=== PATIENT | male | born 1990 | race Caucasian/White ===

== ENCOUNTER 2016-10-03 04:24 | Inpatient (IN) | payer SELFPAY ==
[~2016-10-03] VITALS: Ht 180.3 cm; Wt 63.0 kg
[2016-10-03 05:07] LABS: MEAN CORPUSCULAR HEMOGLOBIN 27.4 pg (27.0-33.0); MEAN CORPUSCULAR HGB CONC 33.5 g/dl (32.0-36.5); MEAN CORPUSCULAR VOLUME 81.7 fl (80.0-96.0); RED CELL DISTRIBUTION WIDTH 12.6 % (11.5-14.5); WHITE BLOOD COUNT 7.6 K/mm3 (4.0-10.0)
[2016-10-03 05:48] LABS: METHADONE URINE NEGATIVE (NEGATIVE)
[2016-10-03 05:59] LABS: ALBUMIN 4.4 GM/DL (3.2-5.2); ALBUMIN/GLOBULIN RATIO 1.57 (1.00-1.93); ALKALINE PHOSPHATASE 41 U/L (45-117); ALT/SGPT 27 U/L (12-78); ANION GAP 8 MEQ/L (8-16); AST/SGOT 19 U/L (15-37); BILIRUBIN,DIRECT 0.1 MG/DL (0.0-0.2); BILIRUBIN,TOTAL 0.5 MG/DL (0.2-1.0); BLOOD UREA NITROGEN 14 MG/DL (7-18); CALCIUM LEVEL 8.6 MG/DL (8.5-10.1); CARBON DIOXIDE LEVEL 24 MEQ/L (21-32); CHLORIDE LEVEL 109 MEQ/L (98-107); CREATININE FOR GFR 0.83 MG/DL (0.70-1.30); GLOMERULAR FILTRATION RATE > 60.0 (>60); GLUCOSE, FASTING 90 MG/DL (70-105); POTASSIUM SERUM 4.2 MEQ/L (3.5-5.1); SODIUM LEVEL 141 MEQ/L (136-145); TOTAL PROTEIN 7.2 GM/DL (6.4-8.2)
[2016-10-03] MEDS ORDERED: ACETAMINOPHEN TAB 650MG DOSE (2X325MG) PO PRN (07:30)
[2016-10-03] MEDS ORDERED: MOM 30ML SUSPENSION UDC PO PRN (07:30)
[2016-10-03] MEDS ORDERED: MAALOX 30 ML SUSP *UDC PO PRN (07:30)
[2016-10-03] MEDS ORDERED: traZODone 50 MG TAB PO PRN (07:30)
[2016-10-03] MEDS ORDERED: NICOTINE 21MG/24HR 1 EA TRANSDERMAL TD SCH (09:00)
[2016-10-03 09:11] VITALS: BP 117/73
[2016-10-03] MEDS: NICOTINE 21MG/24HR 1 EA TRANSDERMAL TD SCH (16:39)
[2016-10-03 18:00] VITALS: BP 135/76
--- NOTE | 2016-10-04 01:28 | HPE ---
DATE OF ADMISSION: 10/03/2016 HISTORY OF PRESENT ILLNESS: Please refer to psychiatric history and evaluation for further details on this admission. This examination and history is intended for medical issues, which may need treatment, followup or consult on this 26-year-old male. ALLERGIES: No known allergies. PRIMARY CARE PROVIDER: He does not currently have one. SOCIAL HISTORY: He is , but . Ethyl alcohol (EtOH) weekends. Smokes none. Recreational drug use: Marijuana and cocaine. PAST MEDICAL HISTORY: Negative. PAST SURGICAL HISTORY: Negative. HOME MEDICATIONS: None. FAMILY HISTORY: Noncontributory. LABORATORY STUDIES: CBC normal. Sodium 141, potassium 4.2, chloride 109, CO2 24, BUN and creatinine 14 and 0.83. Urine positive for cocaine, positive for cannabinoids. REVIEW OF SYSTEMS: 10-system review was done, was unremarkable. Patient had no complaints. PHYSICAL EXAMINATION: 26-year-old cooperative male in no acute distress. Vital signs are stable. Height 71 inches, weight 61.8 kg, body mass index (BMI) 19. Blood pressure 117/73, pulse 67, respirations 18, temperature 96.6. Patient is alert and oriented times three. Pupils equal and react to light. Extraocular muscles intact. Cornea and sclerae clear. Conjunctivae were normal. No facial asymmetry. Pharynx, tongue and gums pink and moist. Tongue is midline. Neck is supple without lymphadenopathy. No thyromegaly, no goiter. Carotids 2+ without bruit. Chest clear to auscultation without wheeze or retraction. Heart is regular. Abdomen is benign. Bowel sounds positive. Genitourinary/rectal: Not done. Extremities: Show equal strength, full range of motion. No cyanosis, clubbing or edema. Peripheral pulses equal and palpable bilaterally. Skin is warm and dry. IMPRESSION/PLAN: Psychiatric plan per psychiatry. No acute medical issues.
--- NOTE | 2016-10-04 02:34 | MHHPE ---
DATE OF ADMISSION: 10/03/2016 HISTORY OF PRESENT ILLNESS: This is a 26-year-old white man who was admitted to the hospital after the patient's girlfriend called the hospital and stated that the patient had threatened to shoot himself with a gun. The girlfriend stated that they had been out in a bar and they had an argument and then the patient went home and attempted to shoot himself with a gun and that she needed to wrestle the gun away from him. The patient is very angry at the girlfriend. He says that it is not true. He says that "I might have mentioned it" when I asked him if he had threatened to use a gun to kill himself. He says, however, that he never had the gun and she never had to wrestle it out of his hand. He says that he and his girlfriend of the past 11 years have been having a lot of problems. The girlfriend showed up at the bar and then an argument ensued. He states he and the girlfriend have been having problems on and off over the past few years. He states that 2 weeks ago he actually left her and he went to stay at his mother's [facility]. He admits that he was very sad at first and he felt very lonely. He says in particular he missed his son who is 3 years old. He says that he is used to putting his son to sleep at night and he misses him a lot. He admits that he still does care for his girlfriend, but he says that at this point he is not sure that their relationship is going to work out unless she changes he says. Currently, the patient is denying that he is depressed. I am not eliciting any mood symptoms. There is no history of any hypomanic or manic-like symptoms or posttraumatic stress disorder (PTSD) or obsessive-compulsive disorder (OCD) or panic symptoms in this patient. PAST PSYCHIATRIC HISTORY: The patient has never any prior outpatient or inpatient psychiatric treatment. He has never made any suicidal attempts. He has never been prescribed any psychotropic medications. FAMILY HISTORY: There is no psychiatric history in the family and no suicides in the family. MEDICAL HISTORY: Patient denies having any medical problems. ABUSE HISTORY: Patient denies any history of any physical or sexual abuse. SUBSTANCE ABUSE HISTORY: Patient says that he uses cannabis daily. He drinks about 3-4 beers a week. REVIEW OF SYSTEMS: VITAL SIGNS: Blood pressure 107/62, pulse 72, respirations 18. APPEARANCE: The patient is dressed in hospital garments and appears the stated age. NEUROMUSCULAR SYSTEM: The patient's gait is normal. There are no involuntary movements noted. All other systems were reviewed and found to be negative. MENTAL STATUS EXAMINATION: This patient is alert and oriented times three. Eye contact is good. Psychomotor activity is increased since he was agitated at first but then he was able to calm down. He is verbally spontaneous. There is no formal thought disorder noted. His mood is angry and affect full range and appropriate. He is not psychotic, suicidal, or homicidal. Concentration is fair. Memory intact. Insight and judgment is poor. DIAGNOSIS: AXIS I: Adjustment disorder with depressed mood, rule out depressive disorder. TREATMENT PLAN: The patient is pretty agitated at first and angry and basically stating that he did not feel that he needed to be in the hospital. As I said, he was minimizing everything prior to admission. According to him he never had the gun in his hand and he said "I just mentioned it." We will need to further observe and evaluate him for continued resolution of suicidal ideations and for possible collaborative information from significant others, particularly his mother. Once stable, we will discharge him with appropriate followup. RACHEL
[2016-10-04 06:49] VITALS: BP 130/64
[2016-10-04] MEDS: NICOTINE 21MG/24HR 1 EA TRANSDERMAL TD SCH (09:33)
[2016-10-04 18:00] VITALS: BP 138/72
--- NOTE | 2016-10-05 05:25 | IPN ---
DATE: 10/04/2016 Evaluated 26-year-old male with a history of adjustment disorder with depressed mood, rule out depressive disorder. SUBJECTIVE: The patient denies feeling suicidal, denies severe depression or even moderate depression. He says that he was admitted because he said that he will kill himself over an argument he had with his ex-, but he was not being literal about it. 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 He reports that he has much to live especially for his [id number] son. He says that he has been having problems with his ex- for a long time because she has never accepted the fact that he works seven days a week, and she is very unhappy about that, but he says he needs to work in order to provide. Because he does work seven days a week, they are able to make ends meet every month. He says the situation has become unbearable and they have been having several problems since about 4-5 years ago, but he has been in a relationship with her for 11 years. They decided to separate and they had this argument last Tuesday, and he says he wanted to kill himself but, again, he says this was not serious. He denies auditory or visual hallucinations, denies current suicidal or homicidal ideations, denies self harm thoughts and denies thoughts of harming other people. Denies thought delusions. OBJECTIVE: Alert, oriented times three, with good eye contact, pleasant and cooperative young man, dressed in hospital clothes, who smiles spontaneously. He has a pleasant attitude and good demeanor. His speech is spontaneous and fluid. His thought process is intact and goal directed. He is motivated to keep on living for him and for his [id number] son. His thought content is coherent. He denies abnormal or psychotic thoughts, denies suicidal or homicidal ideations, denies auditory or visual hallucinations and denies thought delusions. Abstract and computation are fair. Memory recent and remote is good. Attention and concentration are good. Mood is "good" and affect is full range, appropriate, congruent to mood. His insight and judgment are fair. His impulse control is fair. ASSESSMENT: The patient needs to be observed probably for 24-48 hours, but my impression is that he is being honest with what he says, that he is not suicidal. It is this chief underwriter's impression is that it was because he was under the influence of alcohol that he made suicidal statements. This chief underwriter believes he is going through and adjustment, and he has an adjustment disorder and definitely he probably is angry against his ex- and is definitely a little bit depressed. If he continues to be okay, he could be discharged, but we need to make contact with his mother and his ex- to get more information just to verify if what he is saying is true. The patient will be reassessed tomorrow and will continue on the same medications, will be monitored closely until he gets discharged. We will followup.
[2016-10-05 06:28] VITALS: BP 129/61
[2016-10-05] MEDS: NICOTINE 21MG/24HR 1 EA TRANSDERMAL TD SCH (08:56)
[2016-10-05] MEDS ORDERED: NICO21PAT TD (12:12)
[2016-10-05] MEDS ORDERED: TRAZO50TA PO (12:12)
--- NOTE | 2016-10-07 21:03 | DSES ---
DATE OF ADMISSION: 10/03/2016 DATE OF DISCHARGE: 10/05/2016 DISCHARGE DIAGNOSES: 1. Adjustment disorder with depressed mood. 2. Alcohol use disorder. REASON FOR ADMISSION: The patient was brought to the emergency room on October 03 after he made suicidal statements and told his that he wanted to kill himself after they had an argument. 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 CONSULTANTS INVOLVED: None. TREATMENT IN PROGRESS ON THE UNIT: Initially when the patient was admitted he was reported to be angry because he kept denying suicidal ideation and he has repeatedly said that he was not literal about killing himself. It was something that he said because he was upset with his . The patient has not had any behavioral problems at the inpatient mental health unit, has been attending groups and has taken very few medications because he says that he did not want any medications since he was admitted. The patient reports that he has been having problems with his for approximately five years but he has known her for 11 years. He says that she constantly fights with him because she would like him to stay for longer periods at home but he works seven days a week and he justifies working seven days a week because he says that is the way he is able to support his family, he does not see anything wrong in working seven days a week. He says that he feels havoc and he is going to get a divorce but he is willing to become a better person because he loves his 3-year-old son. The patient reports that he enjoys his job in [place] because he works where he loves to be, he enjoys the river and the scenery, and yes, he admits being a vangie and for that reason he has guns. He has adamantly denied being suicidal although he says that it makes him angry that his marriage has failed, life goes on and he will keep working and doing what he likes to do and the only thing that he regrets is that he is not going to be able to be with his 3-year-old son all the time or he will not be able to see him every day. HOSPITAL COURSE: The patient was stable during his hospitalizations, he did not become extremely depressed, he was not violent or aggressive. DISCHARGE ASSESSMENT: Upon discharge the patient was stable, he was not suicidal, not homicidal, not psychotic. At the time of his discharge he was not a danger to self or others. MENTAL STATUS EXAMINATION ON DISCHARGE: The patient is a 26-year-old male who is alert, oriented times three, dressed in hospital clothes, cooperative with interview with a pleasant attitude. Speech is fluent, coherent, spontaneous. Language skills are fair. Thought processes included are intact, coherent. Thought content is coherent. Abstract reasoning and computation are fair. Description of associations are good, they are not loose. Description of abnormal or psychotic thoughts: He denies suicidal or homicidal ideation, denies thought delusions, and denies auditory and visual hallucinations. Insight and judgment are fair. He is oriented times three. His recent and remote memory are intact. His attention span and concentration are intact. Language is fair. Fund of knowledge is adequate. Mood is euthymic at this time. Affect is congruent to mood. MEDICATIONS ON DISCHARGE: The patient was discharged on the following medications: - trazodone 50 mg by mouth nightly taken as needed for insomnia - nicotine patch 21 mg per 24 hours, one patch applied daily for smoking cessation He never received antidepressants at the inpatient mental health unit. He received advice regarding his alcohol consumption so that he would not drink again and carry guns with him and he will be following up as an outpatient because the police will make him go to therapy and later on he will have to go to court. career manager and community health navigator attempted to schedule the patient with [facility] but they had a three month wait so the patient agreed to followup at outpatient. The patient was discharged to his mother and the patient's mother reported that she has no concerns regarding his discharge because there are no weapons at the house as they have been removed by the police. There is no excessive medication at home and nothing that the patient will use to harm himself. Mother accepted the discharge of the patient via telephone conversation but the patient left the inpatient mental health unit with his brother who picked him up.
== END 2016-10-05 13:35 | disposition home or self-care (01) | DRG 754 ==
LOC: M ED 04:24 → M ED INP 07:21 → M PSY 09:04
PROVIDERS: ADMIT Psychiatry & Neurology Psychiatry; ATTEND Psychiatry & Neurology Psychiatry
DX: F43.21 Adjustment disorder with depressed mood (principal); Z68.1 Body mass index [BMI] 19.9 or less, adult; F10.10 Alcohol abuse, uncomplicated

== ENCOUNTER → 2024-08-06 | Outpatient (CLI) | payer OTHER ==
[~2024-08-06] MED LIST: ISOVUE-300 61% 100ML VIAL As Ordered ONE; LIDOCAINE 1% MDV 20ML VIAL As Ordered ONE; NICO21PAT TD; PROHANCE 279.3MG/ML 5ML VIAL As Ordered ONE; TRAZ1TAB10 PO
== END ==
LOC: M RAD 07:49
PROVIDERS: ATTEND Physician Assistant
DX: M25.512 Pain in left shoulder (principal); M75.42 Impingement syndrome of left shoulder; S46.012A Strain of muscle(s) and tendon(s) of the rotator cuff of left shoulder, initial encounter; X58.XXXA Exposure to other specified factors, initial encounter; Y92.9 Unspecified place or not applicable
CPT/HCPCS: 23350; 73223; 77002; A9576; Q9967